=== PATIENT | female | born 1990 | race Two or more races ===

== ENCOUNTER 2017-05-23 13:58 | Inpatient (IN) ==
[2017-05-23 14:03] VITALS: BMI 61.0
[2017-05-23] MEDS ORDERED: SODIUM CHLORIDE 1,000 ML IV STA (14:15)
[2017-05-23] MEDS ORDERED: TYLENOL PO STA (14:16)
[2017-05-23] MEDS ORDERED: XOPENEX 1.25 MG NEB STA (14:17)
--- NOTE | 2017-05-23 14:18 | ED.PDOC ---
General Stated Complaint: Cough and congestion/ fever and chills. patient c/o chills and fever. states cough is prod. of white phlegm. denies sore throat. States some of her friends were sick last week with cold symptoms. States started feeling bad last evening. Attempted to work this morning but became worse and came to ER for evaluation Mode of Arrival: Walk-In Information Source: Patient Exam Limitations: No limitations Nursing and Triage Documentation Reviewed and Agree: Yes Reviewed sepsis parameters & appropriate labs ordered?: Yes System Inflammatory Response Syndrome: Temp 101F or Greater, Pulse >90 BPM, Resp >20/Minute <JUAN GOMEZ - Last Filed: 05/23/17 19:18> Time Seen by Physician: 19:00 System Inflammatory Response Syndrome: Not Applicable <LUIS GUAN - Last Filed: 05/27/17 22:39> ED Provider: Dr. LUIS GUAN Chief Complaint: Respiratory Complaint Primary Care Provider: HAIR THOMAS Sepsis Protocol: For patient's 13 years and over: Temp is 96.8 and below OR 101 and greater Pulse >90 BPM Resp >20/minute Acutely Altered Mental Status Are patient's symptoms suggestive of a new infection, such as: -Pneumonia -Skin, Soft Tissue -Endocarditis -UTI -Bone, Joint Infection -Implantable Device -Acute Abdominal Infection -Wound Infection -Meningitis -Blood Stream Catheter Infection -Unknown Respiratory Complaint Exam - Shortness of Air Complaint/Exam Onset/Duration: 1-2 weeks Symptoms Are: Still present Timing: Constant Initial Severity: Severe Character: Reports: Dyspnea at rest Aggravating: Reports: Movement, URI, Weather Associated Signs and Symptoms: Reports: Cough, Chest pain, Fever, Chills Home Oxygen Use: No Accessory Muscle Use: No Diminished Breath Sounds: No Prolonged Expiratory Phase: No Differential Diagnoses: Asthma, Pneumonia, Pulmonary Embolism, Bronchitis <LUIS GUAN - Last Filed: 05/27/17 22:39> Review of Systems - Review Of Systems Constitutional: Reports: Chills, Fever, Malaise, Weakness, Loss of appetite Eyes: Reports: No symptoms Ears, Nose, Mouth, Throat: Denies: Ear pain, Ear discharge, Epistaxis, Throat pain, Throat swelling Respiratory: Reports: Cough. Denies: Short of air, Stridor, Wheezing Cardiac: Reports: No symptoms GI: Reports: Nausea, Poor fluid intake : Reports: No symptoms Musculoskeletal: Reports: No symptoms Skin: Reports: No symptoms Neurological: Reports: No symptoms Endocrine: Reports: No symptoms Hematologic/Lymphatic: Reports: No symptoms All Other Systems: Reviewed and Negative <PATRICIAJUAN - Last Filed: 05/23/17 19:18> Past Medical History - Past Medical History Endocrine: Reports: None Cardiovascular: Reports: None Respiratory: Reports: None Hematological: Reports: None Gastrointestinal: Reports: None Genitourinary: Reports: None Neuro/Psych: Reports: None Musculoskeletal: Reports: None Cancer: Reports: None Last Menstrual Period: nexplanon implant - Surgical History General Surgical History: Reports: None - Family History Family History: Reports: Unknown - Social History Smoking Status: Never smoker Hx Substance Use: No Alcohol Screening: None <LAURENADRIÁNANNJUAN - Last Filed: 05/23/17 19:18> - Past Medical History Gastrointestinal: Reports: Liver (autoimmune hepatitis) <LUIS GUAN - Last Filed: 05/27/17 22:39> Physical Exam - Physical Exam Appearance: Ill-appearing, Obese Ill-appearing: Moderate Pain Distress: None Eyes: VAISHALI, EOMI, Conjunctiva clear ENT: Ears normal, Nose normal, Oropharynx normal Neck: Supple Respiratory: Airway patent, Breath sounds clear, Breath sounds equal, Breath sounds diminished, Respirations nonlabored Cardiovascular: RRR, Pulses normal, No rub GI/: Soft, Nontender Musculoskeletal: Normal strength, ROM intact, No edema, No calf tenderness Skin: Warm, Dry, Normal color, Pale Neurological: Sensation intact, Motor intact, Alert, Oriented Psychiatric: Affect appropriate, Mood appropriate (Orders written) <LAURENADRIÁNANNJUAN - Last Filed: 05/23/17 19:18> Interpretation - Radiology Interpretation Radiology Interpretation By: Radiologist Radiology Results: Positive Exam Interpreted: CT Scan (Bilateral Pneumonia. ) <FREIDALUIS - Last Filed: 05/27/17 22:39> Re-Evaluation - Re-Evaluation Time of Re-Evaluation: 18:00 Status: Unchanged Vital Signs Stable: Yes (still febrile despite Tylenol given 2 hrs ago) Appearance: NAD Lungs: Clear Skin: Warm and Dry Neuro: Alert and Oriented X3 CV: RRR <PATRICIAJUAN - Last Filed: 05/23/17 19:18> - Re-Evaluation Time of Re-Evaluation: 21:52 Status: Improved Vital Signs Stable: Yes Appearance: NAD Skin: Warm and Dry Neuro: Alert and Oriented X3 <LUIS GUAN - Last Filed: 05/27/17 22:39> Physician Notification - Case Discussed Physician Notified: Dr Vuong Time of Notification: 19:20 (Discussed case-will assume management) <JUAN GOMEZ - Last Filed: 05/23/17 19:18> - Case Discussed Physician Notified: Dr Guan Physician Notified: Dr Kee Time of Notification: 21:45 (ok to admit with Rocephin and zithromax ) <LUIS GUAN - Last Filed: 05/27/17 22:39> Critical Care Note - Critical Care Note Total Time (mins): 65 <LUIS GUAN - Last Filed: 05/27/17 22:39> Course - Course Hematology/Chemistry: 05/23/17 15:00 05/23/17 15:00 <JUAN GOMEZ - Last Filed: 05/23/17 19:18> - Course Hematology/Chemistry: 05/26/17 04:30 05/26/17 04:30 <LUIS GUAN - Last Filed: 05/27/17 22:39> - Course Orders, Labs, Meds: Lab Review 05/23/17 05/23/17 05/23/17 15:00 15:00 15:00 WBC 21.14 H RBC 4.59 Hgb 12.1 Hct 37.5 MCV 81.7 MCH 26.4 L MCHC 32.3 RDW Coeff of Nick 15.2 H Plt Count 276 Immature Gran % (Auto) 0.8 Neut % (Auto) 90.7 Lymph % (Auto) 4.3 L [place] % (Auto) 4.0 Eos % (Auto) 0.1 Baso % (Auto) 0.1 Immature Gran # (Auto) 0.2 Neut # (Auto) 19.2 H Lymph # (Auto) 0.9 [place] # (Auto) 0.8 Eos # (Auto) 0.0 Baso # (Auto) 0.0 D-Dimer (Manual) Puncture Site O2 Saturation ABG pH ABG pCO2 ABG pO2 ABG HCO3 ABG Total CO2 ABG Base Excess [place] Test FiO2 % Sodium 139 Potassium 3.6 Chloride 104 Carbon Dioxide 25 Anion Gap 13.6 BUN 6 L Creatinine 0.76 Estimated GFR (MDRD) 93.00 BUN/Creatinine Ratio 7.89 Glucose 103 Lactic Acid Calcium 8.8 Phosphorus 1.2 L Total Bilirubin 0.4 Direct Bilirubin 0.20 AST 11 L ALT 9 L Alkaline Phosphatase 77 Total Protein 8.6 H Albumin 3.0 L Globulin 5.6 Albumin/Globulin Ratio 0.54 Procalcitonin 1.58 Urine Color Urine Clarity Urine pH Ur Specific Leon Urine Protein Urine Glucose (UA) Urine Ketones Urine Blood Urine Nitrite Urine Bilirubin Urine Urobilinogen Ur Leukocyte Esterase Urine Microscopic RBC Ur Squamous Epith Cells Urine Test Influ A Molecular Assay Influ B Molecular Assay 05/23/17 05/23/17 05/23/17 15:10 15:10 15:10 WBC RBC Hgb Hct MCV MCH MCHC RDW Coeff of Nick Plt Count Immature Gran % (Auto) Neut % (Auto) Lymph % (Auto) [place] % (Auto) Eos % (Auto) Baso % (Auto) Immature Gran # (Auto) Neut # (Auto) Lymph # (Auto) [place] # (Auto) Eos # (Auto) Baso # (Auto) D-Dimer (Manual) Puncture Site O2 Saturation ABG pH ABG pCO2 ABG pO2 ABG HCO3 ABG Total CO2 ABG Base Excess [place] Test FiO2 % Sodium Potassium Chloride Carbon Dioxide Anion Gap BUN Creatinine Estimated GFR (MDRD) BUN/Creatinine Ratio Glucose Lactic Acid Calcium Phosphorus Total Bilirubin Direct Bilirubin AST ALT Alkaline Phosphatase Total Protein Albumin Globulin Albumin/Globulin Ratio Procalcitonin Urine Color Yellow Urine Clarity Clear Urine pH 5.0 Ur Specific Leon 1.020 Urine Protein Negative Urine Glucose (UA) Negative Urine Ketones Negative Urine Blood 1+ Urine Nitrite Negative Urine Bilirubin Negative Urine Urobilinogen 0.2 Ur Leukocyte Esterase Negative Urine Microscopic RBC 2-5 Ur Squamous Epith Cells 20-30 Urine Test Negative Influ A Molecular Assay Negative by naat Influ B Molecular Assay Negative by naat 05/23/17 05/23/17 05/23/17 18:10 20:01 20:01 WBC RBC Hgb Hct MCV MCH MCHC RDW Coeff of Nick Plt Count Immature Gran % (Auto) Neut % (Auto) Lymph % (Auto) [place] % (Auto) Eos % (Auto) Baso % (Auto) Immature Gran # (Auto) Neut # (Auto) Lymph # (Auto) [place] # (Auto) Eos # (Auto) Baso # (Auto) D-Dimer (Manual) 2749.30 Puncture Site Rr O2 Saturation 89.0 L ABG pH 7.492 H ABG pCO2 26.1 L ABG pO2 50.0 L* ABG HCO3 20.0 L ABG Total CO2 21 L ABG Base Excess -3 L [place] Test + FiO2 % 21.0 Sodium Potassium Chloride Carbon Dioxide Anion Gap BUN Creatinine Estimated GFR (MDRD) BUN/Creatinine Ratio Glucose Lactic Acid 15.1 Calcium Phosphorus Total Bilirubin Direct Bilirubin AST ALT Alkaline Phosphatase Total Protein Albumin Globulin Albumin/Globulin Ratio Procalcitonin Urine Color Urine Clarity Urine pH Ur Specific Leon Urine Protein Urine Glucose (UA) Urine Ketones Urine Blood Urine Nitrite Urine Bilirubin Urine Urobilinogen Ur Leukocyte Esterase Urine Microscopic RBC Ur Squamous Epith Cells Urine Test Influ A Molecular Assay Influ B Molecular Assay 05/23/17 20:09 WBC RBC Hgb Hct MCV MCH MCHC RDW Coeff of Nick Plt Count Immature Gran % (Auto) Neut % (Auto) Lymph % (Auto) [place] % (Auto) Eos % (Auto) Baso % (Auto) Immature Gran # (Auto) Neut # (Auto) Lymph # (Auto) [place] # (Auto) Eos # (Auto) Baso # (Auto) D-Dimer (Manual) Puncture Site Lr O2 Saturation 90.0 L ABG pH 7.462 H ABG pCO2 28.6 L ABG pO2 54.0 L* ABG HCO3 20.5 L ABG Total CO2 21 L ABG Base Excess -3 L [place] Test + FiO2 % 21.0 Sodium Potassium Chloride Carbon Dioxide Anion Gap BUN Creatinine Estimated GFR (MDRD) BUN/Creatinine Ratio Glucose Lactic Acid Calcium Phosphorus Total Bilirubin Direct Bilirubin AST ALT Alkaline Phosphatase Total Protein Albumin Globulin Albumin/Globulin Ratio Procalcitonin Urine Color Urine Clarity Urine pH Ur Specific Leon Urine Protein Urine Glucose (UA) Urine Ketones Urine Blood Urine Nitrite Urine Bilirubin Urine Urobilinogen Ur Leukocyte Esterase Urine Microscopic RBC Ur Squamous Epith Cells Urine Test Influ A Molecular Assay Influ B Molecular Assay Orders Category Date Time Status ABG DRAW REQUEST Stat CARDIO 05/23/17 18:10 Completed ABG DRAW REQUEST Stat CARDIO 05/23/17 18:11 Completed ABG DRAW REQUEST Stat CARDIO 05/23/17 20:09 Completed EKG-(ED ONLY) Stat CARDIO 05/23/17 18:10 Completed NEBULIZER TREATMENT Routine CARDIO 05/23/17 21:56 Completed NEBULIZER TREATMENT Stat CARDIO 05/23/17 14:17 Completed NEBULIZER TREATMENT Stat CARDIO 05/23/17 21:19 Completed OXYGEN Routine CARDIO 05/23/17 21:53 Completed ACTIVITY .Early Mobilization for VTE Prevention CARE 05/23/17 21:53 Active INTAKE & OUTPUT Q8HR CARE 05/23/17 21:53 Active IV ACCESS ONCE CARE 05/23/17 14:12 Active NPO REMINDER: IMAGING ONCE CARE 05/23/17 19:19 Completed NPO REMINDER: IMAGING ONCE CARE 05/23/17 20:26 Completed VITAL SIGNS Q4HR CARE 05/23/17 21:53 Active REGULAR DIET DIETARY 05/23/17 Breakfast Completed ED APPLY O2 .ONCE EMERGENCY 05/23/17 14:12 Active ED PREDATORY ANIMAL HUNTER APPLIED .ONCE EMERGENCY 05/23/17 14:12 Active ABG Stat LAB 05/23/17 18:10 Completed ABG Stat LAB 05/23/17 20:09 Completed BASIC METABOLIC PANEL DAILY@0600 LAB 05/24/17 05:00 Completed BILIRUBIN,DIRECT Stat LAB 05/23/17 15:00 Completed BLOOD CULTURE (ED ONLY) Stat LAB 05/23/17 15:00 Results CBC W/ AUTO DIFF DAILY@0600 LAB 05/24/17 05:00 Completed CBC W/ AUTO DIFF DAILY@0600 LAB 05/25/17 06:10 Completed CBC W/ AUTO DIFF Stat LAB 05/23/17 15:00 Completed COMPREHENSIVE METABOLIC PANEL Stat LAB 05/23/17 15:00 Completed D-DIMER Stat LAB 05/23/17 20:01 Completed FLU A/B MOLECULAR Stat LAB 05/23/17 15:10 Completed LACTIC ACID Stat LAB 05/23/17 20:01 Completed MOLECULAR GROUP A STREP Stat LAB 05/23/17 15:10 Completed PHOSPHORUS Stat LAB 05/23/17 15:00 Completed POS BC ID AND TERESA Stat LAB 05/23/17 15:00 Completed POS BC ID AND TERESA Stat LAB 05/23/17 15:00 Completed TEST URINE [URINE ] Stat LAB 05/23/17 15:10 Completed PROCALCITONIN Stat LAB 05/23/17 15:00 Completed SUSCEPT, AER + ANAEROB Stat LAB 05/23/17 15:00 Received URINALYSIS C & S IF INDICATED Stat LAB 05/23/17 15:10 Completed Acetaminophen [Tylenol] MEDS 05/23/17 14:16 Discontinued 650 mg PO ONCE STA Acetaminophen [Tylenol] MEDS 05/23/17 21:53 Discontinued 650 mg PO Q4H PRN Azithromycin Inj [Zithromax] 500 mg MEDS 05/23/17 18:27 Discontinued 0.9 % Sodium Chloride [Sodium Chloride] 250 ml IV ONCE Ceftriaxone Sodium [Rocephin] MEDS 05/23/17 18:49 Discontinued 1 gm .ROUTE .STK-MED ONE Ceftriaxone Sodium [Rocephin] 1 gm MEDS 05/23/17 18:21 Discontinued 0.9 % Sodium Chloride [Sodium Chloride] 50 ml IV ONCE Famotidine Inj [Pepcid] MEDS 05/23/17 17:26 Discontinued 20 mg IVP ONCE STA Ibuprofen Susp [Motrin Susp] MEDS 05/23/17 18:03 Discontinued 600 mg PO ONCE STA Ipratropium/Albuterol Neb [Duoneb] MEDS 05/23/17 21:19 Discontinued 1 vial NEB ONCE STA Ipratropium/Albuterol Neb [Duoneb] MEDS 05/24/17 06:00 Discontinued 1 vial NEB RTQID Levalbuterol HCl [Xopenex 1.25 mg] MEDS 05/23/17 14:17 Discontinued 1 vial NEB ONCE STA Ondansetron HCl/Pf [Zofran 4 mg/2 ml] MEDS 05/23/17 17:23 Discontinued 4 mg IVP ONCE STA Sodium Chloride 0.9% [Sodium Chloride] 1,000 ml MEDS 05/23/17 22:00 Discontinued IV 125 mls/hr Sodium Chloride 0.9% [Sodium Chloride] 1,000 ml MEDS 05/23/17 14:15 Discontinued IV BOLUS RESUSCITATION STATUS Routine OTHERS 05/23/17 21:53 Ordered CHEST, 1V AP ONLY Stat RADS 05/23/17 14:[address] ABDOMEN/PELVIS W CONTRAST Stat RADS 05/23/17 20:26 Completed CTA ANGIO CHEST Stat RADS 05/23/17 19:19 Completed Medications Discontinued Medications Generic Name Dose Route Start Last Admin Trade Name Freq PRN Reason Stop Dose Admin Acetaminophen 650 mg 05/23/17 14:16 05/23/17 15:12 Tylenol PO 05/23/17 14:17 650 mg ONCE STA Administration Acetaminophen 650 mg 05/23/17 21:53 Tylenol PO Q4H PRN Fever > 102 Albuterol Sulfate 1 vial 05/24/17 02:05 Albuterol 0.083% Neb NEB RTQ2H PRN Wheezing Albuterol/Ipratropium 1 vial 05/23/17 21:19 05/23/17 21:30 Duoneb NEB 05/23/17 21:20 1 vial ONCE STA Administration Albuterol/Ipratropium 1 vial 05/24/17 06:00 05/26/17 14:21 Duoneb NEB 1 vial RTQID BELLA Administration Enoxaparin Sodium 40 mg 05/24/17 09:00 05/26/17 10:16 Lovenox SUBCUT 40 mg DAILY BELLA Administration Famotidine 20 mg 05/23/17 17:26 05/23/17 17:55 Pepcid IVP 05/23/17 17:27 20 mg ONCE STA Administration Sodium Chloride 1,000 mls @ 500 mls/hr 05/23/17 14:15 05/23/17 15:20 Sodium Chloride IV 05/23/17 16:14 500 mls/hr BOLUS STA Administration Ceftriaxone Sodium 1 gm/ 50 mls @ 75 mls/hr 05/23/17 18:21 05/23/17 19:10 Sodium Chloride IV 05/23/17 19:00 75 mls/hr ONCE STA Administration Azithromycin 500 mg/ Sodium 250 mls @ 125 mls/hr 05/23/17 18:27 05/23/17 19: 41 Chloride IV 05/23/17 20:26 125 mls/hr ONCE STA Administration Sodium Chloride 1,000 mls @ 125 mls/hr 05/23/17 22:00 05/23/17 22:39 Sodium Chloride IV 125 mls/hr .Q8H BELLA Administration Multivitamins/Minerals 10 ml/ 1,010 mls @ 83 mls/hr 05/23/17 23:00 05/26/17 01:22 Potassium Chloride/Dextrose/ IV Not Given Sod Cl .[id number] BELLA Azithromycin 500 mg/ Sodium 250 mls @ 125 mls/hr 05/24/17 21:00 05/26/17 21: 49 Chloride IV 125 mls/hr BEDTIME BELLA Administration Ceftriaxone Sodium 1 gm/ 50 mls @ 75 mls/hr 05/23/17 23:25 05/23/17 23:33 Sodium Chloride IV 05/24/17 00:04 75 mls/hr ONCE STA Administration Ceftriaxone Sodium 2 gm/ 50 mls @ 50 mls/hr 05/24/17 21:00 05/26/17 21:49 Sodium Chloride IV 50 mls/hr BEDTIME BELLA Administration Potassium Chloride/Dextrose/Sod Cl 1,000 mls @ 125 mls/hr 05/24/17 14:02 14:08 D5%-1/2ns-Kcl 10 Meq/L Iv Isabel IV 05/24/17 22:01 125 mls/hr BOLUS STA Administration Multivitamins/Minerals 10 ml/ 1,010 mls @ 125 mls/hr 05/24/17 14:30 05/26/17 01:22 Potassium Chloride/Dextrose/ IV 05/24/17 22:34 Not Given Sod Cl BOLUS ONE Vancomycin HCl 1 gm/ Sodium 250 mls @ 125 mls/hr 05/24/17 18:00 05/26/17 13: 54 Chloride IV 125 mls/hr Q8HR BELLA Administration Ibuprofen 600 mg 05/23/17 18:03 05/23/17 18:11 Motrin Susp PO 05/23/17 18:04 600 mg ONCE STA Administration Levalbuterol HCl 1 vial 05/23/17 14:17 05/23/17 15:21 Xopenex 1.25 Mg NEB 05/23/17 14:18 1 vial ONCE STA Administration Ondansetron HCl 4 mg 05/23/17 17:23 05/23/17 17:52 Zofran 4 Mg/2 Ml IVP 05/23/17 17:24 4 mg ONCE STA Administration Ondansetron HCl 4 mg 05/23/17 23:36 05/23/17 23:41 Zofran 4 Mg/2 Ml IVP 4 mg Q6H PRN Administration Nausea/Vomiting Potassium Chloride 10 meq 05/24/17 14:00 05/24/17 14:07 Potassium Chloride 10 Meq Vial-Additive Only IV 05/24/17 14:01 10 meq ONCE ONE Administration Sodium Chloride 1 syr 05/24/17 05:00 05/26/17 21:49 Saline Flush IVF 1 syr Q8HR BELLA Administration Vital Signs: Temp Pulse Resp BP Pulse Ox 05/23/17 19:23 103 F H 05/23/17 19:21 94 L 05/23/17 18:03 104 F H 132 H 24 95 05/23/17 17:08 95 05/23/17 13:58 104.1 F H 145 H 20 135/90 95 Departure <JUAN GOMEZ - Last Filed: 05/23/17 19:18> - Departure Time of Disposition: 21:51 Pt referred to PMD for follow-up: No (admitted ) IPMP verified?: No <LUIS GUAN - Last Filed: 05/27/17 22:39> - Departure Disposition: ADMITTED INPATIENT Discharge Problem: Bilateral pneumonia Qualifiers: Pneumonia type: due to unspecified organism Lung location: unspecified part of lung Qualified Code(s): J18.9 - Pneumonia, unspecified organism Condition: Stable Allergies/Adverse Reactions: Allergies Sulfa (Sulfonamide Antibiotics) Adverse Reaction (Verified 05/23/17 14:03) Home Medications: Ambulatory Orders 1 [No Reported Medications] 05/23/17
--- NOTE | 2017-05-23 15:47 | DI ---
EXAM: One-view chest HISTORY: Cough TECHNIQUE: Single frontal view the chest was obtained. FINDINGS: The heart is normal size. Lungs are clear. The pulmonary vasculature appears normal. The osseous structures and mediastinal contours are normal. IMPRESSION: No active cardiopulmonary disease.
[2017-05-23] MEDS ORDERED: ZOFRAN 4 MG/2 ML IVP STA (17:23)
[2017-05-23] MEDS ORDERED: PEPCID IVP STA (17:26)
[2017-05-23] MEDS ORDERED: MOTRIN SUSP PO STA (18:03)
[2017-05-23] MEDS ORDERED: ROCEPHIN 1 GM in SODIUM CHLORIDE 50 ML IV STA ×2 (18:21→23:25)
[2017-05-23] MEDS ORDERED: ZITHROMAX 500 MG in SODIUM CHLORIDE 250 ML IV STA (18:27)
[2017-05-23] MEDS ORDERED: ROCEPHIN ONE ×2 (18:49→23:28)
--- NOTE | 2017-05-23 20:19 | ED.PDOC ---
Procedures - IV/Art Line Insertion Location: lt Hand Type of Line: Peripheral IV Invasive Line/IV Catheter Gauge: 18 Number of Attempts: 2 Blood Return Positive: Yes Invasive Line/IV Flushes Without Difficulty: Yes (blood draw for lab/IV for PE protocol) Conscious Sedation - Pre-op Assessment Weight: 272 lb 8 oz Surgical History: left leg lengthening surgery x2 - Medical History Past Medical History: Liver, Other Other History: autoimmune hepatitis - Physical Exam Heart Rate/Rhythm: Tachycardia
--- NOTE | 2017-05-23 20:21 | ED.PDOC ---
Procedures - IV/Art Line Insertion Location: lt raddial Type of Line: Arterial Line (ABGs arterial stick) Conscious Sedation - Pre-op Assessment Weight: 272 lb 8 oz Surgical History: left leg lengthening surgery x2 - Medical History Past Medical History: Liver, Other Other History: autoimmune hepatitis - Physical Exam Heart Rate/Rhythm: Tachycardia
[2017-05-23] MEDS ORDERED: DUONEB NEB STA (21:19)
--- NOTE | 2017-05-23 21:26 | CT ---
EXAM: CT angiogram of the chest with contrast HISTORY: Fever, pain, low O2 sats TECHNIQUE: Imaging of the chest was performed following the intravenous administration of contrast. 3 mm thin axial images and coronal and sagittal reconstructions and rotated 3-D reconstructions were provided for interpretation. FINDINGS: No definite filling defects were identified within the pulmonary arteries. The central pu lmonary arteries are normal. There is prominent consolidation of the left lower lobe of the lung. A dditional mild consolidation is identified in the right lower lobe of the lung. Ground-glass opaciti es are seen in the right upper lobe of the lung. No lytic or blastic lesions are seen within the oss eous structures. IMPRESSION: There is no acute pulmonary embolism. Bilateral pneumonia.
--- NOTE | 2017-05-23 21:29 | CT ---
EXAM: CT of the abdomen and pelvis without IV contrast. HISTORY: Fever. PROCEDURE: After the intravenous injection of contrast contiguous axial CT images of the abdomen and pelvis were obtained with coronal and sagittal reformats. FINDINGS: There is motion artifact which limits the exam. There is bibasilar consolidation. The liver , gallbladder, pancreas, spleen, adrenal glands and kidneys are normal in appearance. The abdominal aorta is normal in appearance. There is a nonspecific bowel gas pattern. No bowel obstruction. The appendix is normal in appearance. No free fluid or free air in the abdomen or pelvis. The bladder is minimally filled with no abnormality identified. The uterus is unremarkable. The bones are unremar kable. There is a small umbilical hernia containing only fat. Impression: Nonspecific nonobstructive bowel gas pattern. Umbilical hernia as described. Bibasilar consolidation. CT chest of 05/23/2017 dictated separately.
[2017-05-23] MEDS ORDERED: TYLENOL PO PRN (21:53)
[2017-05-23] MEDS ORDERED: MOTRIN PO PRN (21:53)
[2017-05-23] MEDS ORDERED: ZOFRAN 4 MG/2 ML IVP PRN ×2 (21:53→23:36)
[2017-05-23] MEDS ORDERED: SODIUM CHLORIDE 1,000 ML IV SCH (22:00)
[2017-05-23] MEDS ORDERED: INFUVITE ADULT IV ONE (23:05)
[2017-05-23] MEDS: INFUVITE ADULT 10 ML in D5%-1/2NS-KCL 20 MEQ/L IV SOL 1,000 ML IV SCH (23:05)
[2017-05-24] MEDS ORDERED: ALBUTEROL 0.083% NEB NEB PRN (02:05)
[2017-05-24] MEDS: DUONEB NEB SCH ×4 (06:23→20:32)
[2017-05-24] MEDS: LOVENOX SUBCUT SCH (09:01)
[2017-05-24] MEDS ORDERED: INFUVITE ADULT IV ONE ×2 (13:42→14:30)
[2017-05-24] MEDS ORDERED: POTASSIUM CHLORIDE 10 MEQ VIAL-ADDITIVE ONLY IV ONE (14:00)
[2017-05-24] MEDS ORDERED: D5%-1/2NS-KCL 10 MEQ/L IV SOL 1,000 ML IV STA (14:02)
[2017-05-24] MEDS ORDERED: D5 IV ONE (14:30)
[2017-05-24] MEDS ORDERED: [UNRECOGNIZED DRUG - OTHER] IV ONE (14:30)
[2017-05-24] MEDS ORDERED: VANCOMYCIN 1,000 MG in SODIUM CHLORIDE 200 ML IV SCH (17:30)
[2017-05-24] MEDS ORDERED: ROCEPHIN 1 GM in SODIUM CHLORIDE 50 ML IV SCH (21:00)
[2017-05-24] MEDS: ROCEPHIN 2 GM in SODIUM CHLORIDE 50 ML IV SCH (21:11)
[2017-05-24] MEDS: VANCOMYCIN 1 GM in SODIUM CHLORIDE 250 ML IV SCH (21:24)
[2017-05-24] MEDS ORDERED: ZITHROMAX PO SCH (21:56)
[2017-05-24] MEDS: ZITHROMAX 500 MG in SODIUM CHLORIDE 250 ML IV SCH (23:41)
[2017-05-25] MEDS: VANCOMYCIN 1 GM in SODIUM CHLORIDE 250 ML IV SCH ×3 (04:02→21:11)
[2017-05-25] MEDS: DUONEB NEB SCH ×4 (04:25→20:35)
--- NOTE | 2017-05-25 08:50 | ECHO2D ---
Date of Exam: 05/24/17 Ordering Physician: DR. JUDI TORRES, HAIR THOMAS OFFLINE EDITOR , Room #: SCU2 Reason for Echo: SHORT OF BREATH, PNEUMONIA, SINUS TACHYCARDIA M-Mode Normal Adult Results LV Dimensions Normal Adult Results AoV Opening excursions >1.6 >1.6 LVEDD-base- 3.5-5.8 3.9 Ao root dimensions 2.0-3.7 2.6 LVESD-base- 3.1-4.6 L. Atrium dimensions 1.9-3.8 3.5 Post. Wall thickness 0.8-1.1 1.0 IV septum (thickness) 0.7-1.2 1.0 Post. Wall excursion 0.72-1.3 NORMAL Septal motion NORMAL Systolic motion R. Ventricular cavity 1.5-2.0 NORMAL LVEF 60% 55% Paradoxical septal wall motion NORMAL 2-D : 2-D M Mode Echocardiogram was performed using apical four chamber and left parasternal long and short axis views. Mitral, tricuspid and aortic valves appear to be normal. Contractility of the left ventricle seems to be normal, so is the cavity size. Left atrial cavity size and aortic root appear to be normal. There is no pericardial effusion. There is no thrombus noted in the left ventricular or left aortic cavity. No mitral valve prolapse noted. M-MODE: MV: NORMAL AV: NORMAL TV: NORMAL PV: CHAMBER SIZE: NORMAL WALL MOTION: NORMAL PERICARDIUM: NORMAL INTERPRETATION: 1. NORMAL 2 "D" "M" MODE ECHO MTDD
[2017-05-25] MEDS: LOVENOX SUBCUT SCH (09:29)
[2017-05-25] MEDS ORDERED: INFUVITE ADULT IV ONE (09:50)
[2017-05-25] MEDS: INFUVITE ADULT 10 ML in D5%-1/2NS-KCL 20 MEQ/L IV SOL 1,000 ML IV SCH (09:53)
[2017-05-25] MEDS: ROCEPHIN 2 GM in SODIUM CHLORIDE 50 ML IV SCH (20:05)
[2017-05-25] MEDS: ZITHROMAX 500 MG in SODIUM CHLORIDE 250 ML IV SCH (23:22)
[2017-05-26] MEDS: INFUVITE ADULT 10 ML in D5%-1/2NS-KCL 20 MEQ/L IV SOL 1,000 ML IV SCH ×2 (01:21→01:22)
[2017-05-26] MEDS: DUONEB NEB SCH ×3 (04:35→14:21)
[2017-05-26] MEDS: VANCOMYCIN 1 GM in SODIUM CHLORIDE 250 ML IV SCH ×2 (05:27→13:54)
--- NOTE | 2017-05-26 09:07 | CONS ---
DATE OF SERVICE: 05/25/17 CONSULT FOLLOWUP SUBJECTIVE: 26 year old black female hospitalized with double pneumonia. I was asked see the patient because of persistent sinus tachycardia. The patient's heart rate is better today. In the afternoon when I saw the patient pulse rate was 100-110 per minute. She had no symptoms of CHF or coronary insufficiency. She says that she is feeling a lot better and her appetite has improved. REVIEW OF SYSTEMS: CONSTITUTIONAL: No night sweats. No fatigue, malaise, lethargy. No fever or chills. HEENT: Eyes: No visual changes. No eye pain. No eye discharge. ENT: No runny nose. No epistaxis. No sinus pain. No sore throat. No odynophagia. No ear pain. No congestion. RESPIRATORY: No cough, no congestion. No hemoptysis. CARDIOVASCULAR: No angina symptoms. No CHF symptoms. No atypical chest pain for CAD. No palpitations. No shortness of breath. GASTROINTESTINAL: No abdominal pain. No nausea or vomiting. No diarrhea or constipation. No hematemesis. No hematochezia. GENITOURINARY: No urgency. No frequency. No dysuria. No hematuria. No obstructive symptoms. No discharge. No pain. No significant abnormal bleeding. MUSCULOSKELETAL: No musculoskeletal pain. No joint swelling. No arthritis. NEUROLOGICAL: No headache. No neck pain. No syncope. No seizures. No dizziness. PSYCHIATRIC: Not anxious. No depression. No suicidal thoughts. No homicidal thoughts. SKIN: No rash. No lesions. No wounds. ENDOCRINE: No unexplained weight loss. No weight gain. HEMATOLOGIC/LYMPHATIC: No anemia. No purpura. No petechiae. No prolonged or excessive bleeding. No palpable lymph nodes. PHYSICAL EXAMINATION: VITAL SIGNS: Oxygen saturation more than 90% all the time on room air. HEENT: Head normocephalic, atraumatic. Eyes: Extraocular muscles are intact. Pupils are equal, round and reactive to light and accommodation. Ears: No lesions. Nose appeared normal. Throat: No exudate or erythema. NECK: Supple. No JVD, no carotid bruit. No lymphadenopathy or thyromegaly. LUNGS: Decreased breath sounds but good air entry. The patient doesn't seem to be in distress. Percussion note normal. Chest symmetrical. HEART: S1, S2, no S3. No murmurs. No cyanosis or clubbing. No ascites. Pulses: Dorsalis pedis and posterior tibial pulses +1 to +2 both sides. Both heart sounds are distant. ABDOMEN: Soft. Nontender. Bowel sounds active. No CVA tenderness. No mass felt. EXTREMITIES: No edema. Full range of motion of all extremities, equal. NEUROLOGIC: No focal deficit. Cranial nerves II through XII are grossly intact. No headache, no double vision or headache. SKIN: Not dry. Intact. Turgor - normal. LYMPHATIC: No palpable lymph nodes/no lymphedema. MUSCULOSKELETAL: Normal joints with no swelling. Muscle tone is normal. ASSESSMENT: 1. Sinus tachycardiac seems to be related to multiple factors like morbid obesity, sedentary lifestyle, deconditioning, pneumonia, NEBS treatment, Anemia. 2. Cardiovascular status is stable. MTDD
[2017-05-26] MEDS: LOVENOX SUBCUT SCH (10:16)
--- NOTE | 2017-05-26 11:54 | CONS ---
DATE OF CONSULTATION: 05/24/17 REASON FOR CONSULTATION: Sinus tachycardia HISTORY OF PRESENT ILLNESS: 26 year old black female hospitalized on 05/23/17 with bilateral pneumonia. The patient has history of Hepatitis which has resolved and she is in remission. The patient is morbidly obese with BMI of 61. According to the patient she has been sick for more than one week. In the family the patient had flu syndrome. It seems initially that patient had flu which turned into bilateral pneumonia. 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 REVIEW OF SYSTEMS: CONSTITUTIONAL: No night sweats. Fatigue and weakness. Fever and chills. HEENT: Eyes: No visual changes. No eye pain. No eye discharge. ENT: No sinus drainage. No epistaxis. No sinus pain. No sore throat. No odynophagia. No ear pain. No congestion. RESPIRATORY: Cough, Congestion. No hemoptysis. Shortness of breath on exertion. CARDIOVASCULAR: No angina symptoms. No CHF symptoms. No atypical chest pain for CAD. No palpitations. No orthopnea. GASTROINTESTINAL: No abdominal pain. No nausea or vomiting. No diarrhea or constipation. No hematemesis. No hematochezia. Appetite is improving. GENITOURINARY: No urgency. No frequency. No dysuria. No hematuria. No obstructive symptoms. No discharge. No pain. No significant abnormal bleeding. MUSCULOSKELETAL: No musculoskeletal pain. No joint swelling. Aches and pain generalized much better for past 12 hours. NEUROLOGICAL: No headache. No neck pain. No syncope. No seizures. No dizziness. PSYCHIATRIC: Not anxious. No depression. No suicidal thoughts. No homicidal thoughts. SKIN: No rash. No lesions. No wounds. ENDOCRINE: No unexplained weight loss. No weight gain. HEMATOLOGIC/LYMPHATIC: No anemia. No purpura. No petechiae. No prolonged or excessive bleeding. No palpable lymph nodes. MEDICATIONS: None ALLERGIES: Sulfa SOCIAL/PERSONAL/FAMILY HISTORY: The patient is and has two kids. Nonsmoker and no alcohol abuse. 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 PHYSICAL EXAMINATION: GENERAL: The patient is oriented to time, place and person. VITAL SIGNS: Temperature 98, pulse 114 per minute, respiratory rate 20, blood pressure 130/40 and pulse ox 100%. HEENT: Head normocephalic, atraumatic. Eyes: Extraocular muscles are intact. Pupils are equal, round and reactive to light and accommodation. Ears: No lesions. Nose appeared normal. Throat: No exudate or erythema. NECK: Supple. No JVD, no carotid bruit. No lymphadenopathy or thyromegaly. LUNGS: Decreased breath sounds.Clear to auscultation. Percussion note normal. Chest symmetrical. HEART: S1, S2, no S3. Distant. No murmurs. No cyanosis or clubbing. No ascites. Pulses: Dorsalis pedis and posterior tibial pulses +1 to +2 both sides. Tachycardia noted. ABDOMEN: Soft. Nontender. Bowel sounds active. No CVA tenderness. No mass felt. Protuberant. EXTREMITIES: No edema. Full range of motion of all extremities, equal. NEUROLOGIC: No focal deficit. Cranial nerves II through XII are grossly intact. No headache, no double vision or headache. SKIN: Not dry. Intact. Turgor - normal. LYMPHATIC: No palpable lymph nodes/no lymphedema. MUSCULOSKELETAL: Normal joints with no swelling. Muscle tone is normal. LABS: Hgb 11.7, hct 36, WBC 20,000 normal differential, creatinine 0.7, BUN 8, potassium 3.5, TSH normal, Glucose 136 nonfasting. ASSESSMENT: 1. Sinus tachycardia as a combination of a lot of factors like inactivity, morbidly obesity, bilateral pneumonia, medications like NEBS treatment, rule out any dilated cardiomyopathy any primary reason for her to have sinus tachycardia of cardiac origin. 2. Morbid obesity 3. Bilateral pneumonia RECOMMENDATIONS: 1. Will do echocardiogram to evaluate LV function 2. At present time the patient has multiple factors that cause tachycardia, very likely the patient has base line pulse around 90-110 per minute which could be related to her massive obesity with inactivity and sedentary lifestyle with deconditioning. 3. The patient had echocardiogram done which showed normal LV contractility, normal LV size, normal valves with pericardial effusion. There is no evidence of LV dysfunction or dilated cardiomyopathy or hypertrophic cardiomyopathy. 4. Counseling for weight loss diet done 5. Treatment of pneumonia per primary care 6. Agreed with telemetry and monitoring cardiac rhythm 7. The patient's EKG shows sinus tachycardia with no acute changes 8. Will recommend sleep study 9. Dietary consult Thanks for referral. Will follow. [facility]
--- NOTE | 2017-05-26 13:22 | CT ---
EXAM: CT chest without contrast. HISTORY: Cough. Shortness of breath. Elevated procalcitonin. COMPARISON: 05/23/2017. TECHNIQUE: Multiple axial images of the chest were obtained without intravenous contrast. Images we re reformatted in the sagittal and coronal planes. FINDINGS: Multiple axillary lymph nodes are present measuring up to 1.2 cm on the left and 1.3 cm on the right. Evaluation for mediastinal and hilar lymphadenopathy is limited by lack of intravenous c ontrast. Heart size is mildly enlarged. No pericardial effusion detected. Extensive consolidation occupies the entire left lower lobe. Consolidation also present in the right lower lobe and right upper lobe. Tiny right pleural effusion noted. No pneumothorax detected. Limited images of the upper abdomen are unremarkable. No acute osseous abnormality identified. Since the prior study, the right lung consolidation has worsened. Left lung consolidation is not sig nificantly changed. IMPRESSION: 1. Worsened multifocal right lung pneumonia. 2. Stable extensive left lower lobe pneumonia. 3. Stable bilateral axillary lymphadenopathy.
--- NOTE | 2017-05-26 14:45 | PN ---
DATE OF VISIT: 05/24/17 SUBJECTIVE: The patient is alert and responsive. She looks like she feels better. She was eating lunch when I made my rounds. Vital signs at 10 a.m. before my rounds showed temperature 98.9, pulse 114, blood pressure 132/42, respiratory rate 24, oxygen saturation 100 at 3.5L. This needed to be decreased. I don't know why this oxygen is being increased. She did eat about 25% of her lunch. Repeat CBC today showed decreasing WBC 20,300 from 21,140. The hemoglobin is down to 11.7, hematocrit down to 36.5, MCV 81.5, MCH 26.1. RDW 15.3. No stabs. TSH is normal 0.483. Fasting insulin was requested but no results. Lungs have diminished breath sounds and hard to hear any rales. This patient was encouraged to take a deep breath. She is able to take a deep breath if she is sitting on the side of the bed. I had asked Dr. Wetzel, the emergency management system director to see the patient because of the persistent tachycardia in spite of the normal temperature. Also to rule out any endocarditis. I am still going to have the gram stain. Sputum was requested for culture and sensitivity. Blood culture was in place, done at the emergency room and no results. Blood culture did show gram positive cocci. The patient would most likely be given Vancomycin. This will be on top of Ceftriaxone plus Azithromycin. The patient's EGFR is 93 and 94. The blood culture preliminary showed gram positive cocci. Vancomycin 1 gm q.12hr is instituted. [facility]
--- NOTE | 2017-05-26 15:26 | HP ---
CHIEF COMPLAINT: Vomiting, fever and chills. SOURCE OF HISTORY: Patient. HISTORY OF PRESENT ILLNESS: The patient claimed that she had not been feeling well since last week, somewhere about . She continued to have problems and felt bad in the evening. The patient claimed to have a fever of 104. She preceded to go to work 05/23/17 and vomited at work and came home from work and presented to the emergency room. The patient did walk in and the patient did show a temperature of 104.1. Pulse 145, blood pressure 135/90, respiratory rate 20, oxygen saturation 95. The patient had elevated D-Dimer as so a CT scan with contrast was done and no pulmonary emboli was noted, but the patient was found to have bilateral pneumonitis, right more than the left side. The chest x-ray does not indicate any pneumonia. The patient's CBC showed a WBC of 21,140, MCV is towards the lower limit of normal and the MCH is below normal. RDW 15.2, platelet count 276,000, normal. Neutrophil 19.2, but no stabs. Arterial blood gases showed severe hypoxemia with PO2 54, oxygen saturation 90.462. FIO2 21. Chemistry unremarkable, except for a total protein of 8.6. Procalcitonin 1.58. Lactic acid normal at 15.1. Urinalysis slightly abnormal, sample not good. Epithelial cells 20 to 30. Urine test was done prior to the studies. Influenza A and B were negative by nuclear amplification. The patient was then admitted to the hospital because of bilateral pneumonia, severe hypoxemia and severe leukocytosis with a high fever. 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 The patient also was diagnosed with autoimmune hepatitis when she was 17 years of age, nine years ago. She was admitted at [facility] in [place], [place] and then later referred to [place] for further care. The patient had not had a recurrence of the problem. The patient has a Naxelanon implant. FAMILY HISTORY: Maternal side had history of diabetes. Paternal side unknown. SOCIAL HISTORY: The patient is with two children, age four and one. She never did smoke any cigarettes or use any tobacco products and denies any alcoholic beverages. 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 MEDICATIONS: Prior to this admission-no prescribed medications. The patient had taken DayQuil and NyQuil. ALLERGIES: Sulfa. REVIEW OF SYSTEMS: CONSTITUTIONAL: The patient has fever and chills and fatigue. PHARMACY BENEFITS COORDINATOR: Denies any severe headaches and no history of syncope or seizure problems. VISUAL: Denies any double vision, blurred vision or transient loss of vision. RESPIRATORY: The patient has cough and productive. Arterial blood gases abnormal with low PO2 and low oxygen saturation. CARDIOVASCULAR: Denies any chest pain or chest tightness. GASTROINTESTINAL: The patient had vomited while at work. She had not vomited since admission to the floor. Denies any abdominal pain or diarrhea. GENITOURINARY: The patient denies any pain or frequency or urination. MUSCULOSKELETAL: Denies any significant joint or muscular pains. ENDOCRINE: Negative. This patient is markedly obese with a BMI of 61. She is 4 '8" and weighs 272 pounds and 2.24 ounces. INTEGUMENT: Denies any rash or pruritus. HEMATOLOGIC: No history of prolonged bleeding. PSYCHIATRIC: Affect seemed to be decreased. It could be that the patient just doesn't feel well. PHYSICAL EXAMINATION: GENERAL: We have a 26 year old black female admitted to the hospital because of markedly elevated temperature with marked hypoxemia, bilateral pneumonia, right more than left. HEAD: Unremarkable. FACE: Symmetrical and equal with no facial weakness and no tenderness to palpation in the frontal or maxillary sinus areas. EYES: Pupils equal/reactive to light. Conjunctivae not pale. Sclerae not icteric. MOUTH: Unremarkable. THROAT: No inflammation, tumors or exudate. NECK: Very short. No adenitis. No masses. No bruit. No tenderness. No rigidity. CHEST: Essentially symmetrical and equal. LUNGS: Breath sounds are markedly diminished, probably because of size. No rales appreciable. HEART: Audible and tachycardic and regular. No murmurs. ABDOMEN: Markedly protuberant and soft with no remarkable tenderness. Very difficult to palpate any mass with the size of this abdomen. PELVIC: Not performed. RECTAL: Not done. LOWER EXTREMITIES: Ankle edema. Pedal pulses present. UPPER EXTREMITIES: Symmetrical and equal. ASSESSMENT: 1. BILATERAL PNEUMONIA, PROBABLY BACTERIAL 2. MODERATE TO SEVERE HYPOXEMIA SECONDARY TO #1. 3. HISTORY OF AUTOIMMUNE HEPATITIS 4. MARKEDLY OBESE, BMI 61 MTDD
--- NOTE | 2017-05-26 15:55 | DS ---
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 The patient was not very clear about the history and I again asked her today when the problem began. She claimed that it began Monday of last week, one week prior to presentation to the emergency room. She claimed that she did not feel well but no sore throat and no fever. I asked her if she continued to work and she told me that she could not remember but if she was scheduled she must have worked. She did not work Monday and Monday as well as Monday. She went to work 05/23/17 and begun vomiting and recorded a temperature of 104+. She presented to the emergency room at [facility] and the workup showed unremarkable chest x-ray but was done only one view AP and the D. dimer was elevated so a CTA was done and pneumonia was identified occupying the left lower lobe as well as right lower lobe but much less on the right. WBC was moderately elevated 21,140. Arterial blood gases showed p02 54, oxygen saturation 90, pc02 28.6, pH 7.462, FI02 21%. PHYSICAL EXAMINATION: The patient, on examination on the floor, Special Care Unit, revealed an alert individual that doesn't appear to be dyspneic or tachypneic with 2L of oxygen. Her BMI was markedly elevated at 61. NECK: No masses, no bruits. CHEST: Unremarkable. Expansion is adequate. Lungs: Breath sounds diminished and could not hear any breath sounds on the left side. Breath sounds are on the right barely audible. HEART: Normal sinus rhythm and tachycardic. Sputum culture, gram stain as well as blood cultures were ordered and done except for the sputum gram stain. The patient was placed on Rocephin 1 gm intravenously and had increased it on the day of admission to 2 and to be given every 24 hours. Zithromax was given 500 mg initially and ordered 250 orally and that was discontinued and replaced with 500 mg every day. Blood culture did show heavy growth of gram positive cocci and Vancomycin 1 gm was added intravenously initially every 12 hours and changed to every 8 hours at the recommendation of the PharmD. The patient on , late at night returned ID of Streptococcus pneumoniae and sensitive to Erythromycin as well as Vancomycin. Two blood cultures were positive for the same bacteria. The patient's status remained stable. The patient remained alert and feeling better. Lungs now have rales on the right lower one-third but no breath sounds are audible on the left. No wheezing. The patient's temperature was recorded at 104.1 at 1358 05/23/17 and 104 at 1803 05/23/17. Pulse was 145 initially in the emergency room down to 132 on the floor on admission. Respirations was 24, oxygen saturation 95. At 7:23 p.m. on 05/23/17 the temperature did decrease to 103 and since then the temperature had been 100 or below. The pulse remained elevated and cardiology consultation was requested because of the tachycardia. The blood pressure remained essentially unchanged and normal about 133/88 or there about. The patient remained to have low grade temperature but did return to normal on 05/26/17 at 10 a.m., 98.5 orally and 98.9 at 2 p.m. The pulse ranged from 112 to 120, blood pressure did from 102/0 to 148/90. Her oxygen saturation at 2L/NC 98 and 95 at 2 p.m. The patient's CBC showed persistent leukocytosis 21,140 initially and on 05/24/17, did decrease to 20,300, on 05/25 the WBC spiked to 24,000 and on 05/26 did come down to 23,810. The patient had neutrophils but no stabs. Chemistries showed no remarkable changes. Her fasting insulin level was elevated 25.9 although her blood sugars are normal. The procalcitonin was 1.58 on admission and did rise to 4.55 today 05/26/17. A repeat CT of the chest without contrast worsening multifocal right lung pneumonia, stable extensive left lower lobe pneumonia, bilateral axillary adenopathies or lymphadenopathies. I talked to the consulting migrant leader whether he has any other additional recommendations for this patient with regards to the pneumonia and he told me that he does not have. The echocardiogram was essentially normal. The patient appears clinically stable and improved; however, the patient's other findings are deteriorating like the pneumonic process of the right lung. I had reviewed the CT of the chest that was done 05/23/17 and the radiologist was concerned that the patient's pneumonic process is quite severe. Because of the increasing procalcitonin level that I felt maybe this patient would require a transfer to another facility that may have the available consultation with chief minister plus infectious disease. I did discuss that with the patient and she was more or less agreeable but she asked me if she was worse and I told her that clinically she is not. I just was concerned that I do not have all the specialists that I would need just in case her condition would deteriorate. I would obtain an arterial blood gases on room air after this dictation. FINAL DIAGNOSES: 1. BILATERAL PNEUMONIA, LEFT SEVERE; RIGHT INCREASING 2. BACTEREMIA STREPTOCOCCUS PNEUMONIAE SENSITIVE TO VANCOMYCIN WELL ERYTHROMYCIN 3. MARKEDLY ELEVATED BMI 4. ELEVATED FASTING INSULIN 5. HISTORY OF AUTOIMMUNE HEPATITIS, AGE 17 YEARS OF AGE 6. SEVERE HYPOXEMIA SECONDARY TO BILATERAL PNEUMONIA MTDD
[2017-05-26 21:44] VITALS: TEMP 100.1
[2017-05-26] MEDS: ZITHROMAX 500 MG in SODIUM CHLORIDE 250 ML IV SCH (21:49)
[2017-05-26] MEDS: ROCEPHIN 2 GM in SODIUM CHLORIDE 50 ML IV SCH (21:49)
[2017-05-26 23:09] VITALS: BP 152/68
--- NOTE | 2017-06-01 12:53 | CONS ---
DATE OF SERVICE: 05/26/17 CONSULT FOLLOWUP SUBJECTIVE: 26-year-old black female followup consultation for sinus tachycardia. The patient still has heart rate into around 100/min. She is feeling better. The patient has Streptococcus Pneumoniae in her blood. She is being treated for pneumonia. REVIEW OF SYSTEMS: CONSTITUTIONAL: She is feeling better. Low grade fever. No night sweats. No fatigue, malaise, lethargy. No chills. HEENT: Eyes: No visual changes. No eye pain. No eye discharge. ENT: No runny nose. No epistaxis. No sinus pain. No sore throat. No odynophagia. No ear pain. No congestion. RESPIRATORY: No cough, no congestion. No hemoptysis. CARDIOVASCULAR: No angina symptoms. No CHF symptoms. No atypical chest pain for CAD. No palpitations. No shortness of breath. GASTROINTESTINAL: Appetite is practically normal. No abdominal pain. No nausea or vomiting. No diarrhea or constipation. No hematemesis. No hematochezia. GENITOURINARY: No urgency. No frequency. No dysuria. No hematuria. No obstructive symptoms. No discharge. No pain. No significant abnormal bleeding. MUSCULOSKELETAL: No musculoskeletal pain. No joint swelling. No arthritis. NEUROLOGICAL: No headache. No neck pain. No syncope. No seizures. No dizziness. PSYCHIATRIC: Not anxious. No depression. No suicidal thoughts. No homicidal thoughts. SKIN: No rash. No lesions. No wounds. ENDOCRINE: No unexplained weight loss. No weight gain. HEMATOLOGIC/LYMPHATIC: No anemia. No purpura. No petechiae. No prolonged or excessive bleeding. No palpable lymph nodes. PHYSICAL EXAMINATION: HEENT: Head normocephalic, atraumatic. Eyes: Extraocular muscles are intact. Pupils are equal, round and reactive to light and accommodation. Ears: No lesions. Nose appeared normal. Throat: No exudate or erythema. NECK: Supple. No JVD, no carotid bruit. No lymphadenopathy or thyromegaly. LUNGS: Clear to auscultation. Percussion note normal. Chest symmetrical. HEART: S1, S2, no S3. No murmurs. No cyanosis or clubbing. No ascites. Pulses: Dorsalis pedis and posterior tibial pulses +1 to +2 both sides. ABDOMEN: Soft. Nontender. Bowel sounds active. No CVA tenderness. No mass felt. EXTREMITIES: No edema. Full range of motion of all extremities, equal. NEUROLOGIC: No focal deficit. Cranial nerves II through XII are grossly intact. No headache, no double vision or headache. SKIN: Not dry. Intact. Turgor - normal. LYMPHATIC: No palpable lymph nodes/no lymphedema. MUSCULOSKELETAL: Normal joints with no swelling. Muscle tone is normal. ASSESSMENT: 1. SINUS TACHYCARDIA WHICH SEEMS TO BE MULTIFACTORIAL DISCUSSED IN PREVIOUS NOTES. 2. BILATERAL PNEUMONIA. 3. MORBID OBESITY. RECOMMENDATIONS: 1. Pneumonia treatment per primary care. The patient doesn't need any attention at the present time for her sinus tachycardia. Condition seems to be stable. I had discussion with Dr. Kee about this patient later on the in the afternoon. I explained to him that echocardiogram, 2D and echo was normal. The reason for tachycardia was probably secondary to pneumonia, septicemia, conditioning, morbid obesity and nebs treatment. There was no evidence of CHF or any other cardiac problems. [facility]
--- NOTE | 2017-06-01 12:56 | CONS ---
CODING FOR BILLING 05/24/17 LEVEL 5 05/25/17 INTERMEDIATE 05/26/17 INTERMEDIATE MTDD
--- NOTE | 2017-06-16 08:20 | PN ---
DATE OF VISIT: 05/25/17 SUBJECTIVE: The patient today is alert and oriented and does not appear to be in any distress. VITAL SIGNS: Temperature of 99.8, pulse 113, blood pressure 132/90, respiratory rate 24 and oxygen saturation 100 at 2 liters. I had asked for a cardiology consult and the front tender had done an echocardiogram. The patient's appetite today is good. LUNGS: Markedly diminished breath sounds as on admission. No rales in the left lower posterior chest. Breath sounds are heard in the right side with some crackles of the base. Breath sounds are markedly diminished probably due to size. The patient has a large pneumonia in the left lower lobe and would repeat a chest CT tomorrow and review that with the radiologist. LABS: WBC 24,000, moderate anemia hgb 9.7, hct 30.1, plt count normal 250,000 no stabs. Liver panel normal, sugar normal at 92. Blood cultures were positive for streptococcus pneumonia sensitive to a host of medications. This patient is receiving Ceftriaxone 1gram daily and Azithromycin 500mg intervenously daily for 3 days and Vancomycin 1 gram Q 8 hours. The Vancomycin began 05/24/17. Azithromycin also was on 05/24/17 and the patient received Ceftriaxone on . Was given Azithromycin initially at the emergency room 500mg IV. The pneumonia on the left lobe was lower and occupied or involved the whole left lower lobe. We will do a chest CT tomorrow. Strep pneumonia is sensitive to Erythromycin, Ceftriaxone as well as Vancomycin. All three of these medications on board since admission. [facility]
== END 2017-05-26 22:55 | disposition short-term general hospital (02) | DRG 194 ==
LOC: ED 13:58 → SCU 21:56
PROVIDERS: ADMIT General Practice; ATTEND General Practice
DX: J18.9 Pneumonia, unspecified organism (principal); R78.81 Bacteremia; Z68.44 Body mass index [BMI] 60.0-69.9, adult; R09.02 Hypoxemia; R50.9 Fever, unspecified; R00.0 Tachycardia, unspecified; R73.01 Impaired fasting glucose; R79.1 Abnormal coagulation profile; D72.829 Elevated white blood cell count, unspecified; B95.3 Streptococcus pneumoniae as the cause of diseases classified elsewhere; E66.8 Other obesity; R11.10 Vomiting, unspecified; Z87.19 Personal history of other diseases of the digestive system; Z97.5 Presence of (intrauterine) contraceptive device
CPT/HCPCS: 36415; 80048; 80053; 80202; 81001; 81025; 82248; 82803; 83525; 83605; 84100; 84145; 84443; 85007; 85025; 85379; 86710; 87040; 87070; 87186; 87502; 87651; 93005; 93010; 94640; 96365; 96366; 96375; 97802; 99285

== ENCOUNTER 2017-05-26 22:56 | Outpatient (CLI) | END 2017-05-26 22:57 | disposition short-term general hospital (02) | LOC: AMBL 22:56 | PROVIDERS: ATTEND Family Medicine | DX: J18.9 Pneumonia, unspecified organism (principal) ==

== ENCOUNTER 2017-07-05 12:19 | Outpatient (CLI) ==
--- NOTE | 2017-07-05 14:55 | DI ---
EXAM: Two views of the chest. History: Follow-up pneumonia Comparison: Chest CT 05/26/2017 Findings: Heart size is upper limits of normal. No focal consolidation. No appreciable pleural flu id and no pneumothorax. No acute osseous abnormalities. Impression: No acute cardiopulmonary process.
== END 2017-07-05 12:20 | disposition home or self-care (01) ==
LOC: RAD 12:19
PROVIDERS: ATTEND Internal Medicine Infectious Disease
DX: J13 Pneumonia due to Streptococcus pneumoniae (principal); R78.81 Bacteremia; B95.3 Streptococcus pneumoniae as the cause of diseases classified elsewhere; K75.4 Autoimmune hepatitis